=== PATIENT | female | born 1930 | race Caucasian/White ===

== ENCOUNTER → 2017-05-10 | Emergency (ER) | payer OTHER ==
[~2017-05-10] VITALS: Ht 165.1 cm; Wt 45.4 kg
[~2017-05-10] MED LIST: ATACAND4 MG PO; CATAFLAM50 MG PO; LIBRAX CAPSULE1 CA1 PO; MAGNESIUM200 MG PO; POTASSIMIN75 MG PO; SINGULAIR4 MG PO; VASOTEC2.5 MG PO; ZOLOFT25 MG PO
== END | disposition home or self-care (01) ==
LOC: ER 16:56
DX: R55 Syncope and collapse (principal); E86.0 Dehydration

== ENCOUNTER 2018-03-15 12:06 | Inpatient (IN) | payer OTHER ==
[~2018-03-15] VITALS: Ht 149.9 cm; Wt 36.3 kg
== END 2018-03-24 19:24 | disposition home or self-care (01) | DRG 177 ==
LOC: ER 12:06 → MEDI 17:00
PROC: 3E0F7GC Introduction of Other Therapeutic Substance into Respiratory Tract, Via Natural or Artificial Opening (ICD-10-PCS; principal; 2018-03-15)
PROC: 4A033R1 Measurement of Arterial Saturation, Peripheral, Percutaneous Approach (ICD-10-PCS; 2018-03-15)
PROC: BW28ZZZ Computerized Tomography (CT Scan) of Head (ICD-10-PCS; 2018-03-15)
PROC: 4A12X4Z Monitoring of Cardiac Electrical Activity, External Approach (ICD-10-PCS; 2018-03-15)
DX: J69.0 Pneumonitis due to inhalation of food and vomit (principal); G92 Toxic encephalopathy; N39.0 Urinary tract infection, site not specified; A02.8 Other specified salmonella infections; N17.8 Other acute kidney failure; A02.0 Salmonella enteritis; R78.81 Bacteremia; G30.8 Other Alzheimer's disease; F02.80 Dementia in other diseases classified elsewhere, unspecified severity, without behavioral disturbance, psychotic disturbance, mood disturbance, and anxiety; I11.9 Hypertensive heart disease without heart failure; L89.152 Pressure ulcer of sacral region, stage 2; Z74.01 Bed confinement status; Z86.73 Personal history of transient ischemic attack (TIA), and cerebral infarction without residual deficits; B96.1 Klebsiella pneumoniae [K. pneumoniae] as the cause of diseases classified elsewhere; D63.8 Anemia in other chronic diseases classified elsewhere; R15.9 Full incontinence of feces; N39.498 Other specified urinary incontinence

== ENCOUNTER 2018-04-29 13:11 | Emergency (ER) | payer OTHER ==
[~2018-04-29] VITALS: Ht 149.9 cm; Wt 45.4 kg
== END 2018-04-29 19:07 | disposition home or self-care (01) ==
LOC: ER 13:11
DX: B34.9 Viral infection, unspecified (principal); R55 Syncope and collapse; N39.0 Urinary tract infection, site not specified; G30.1 Alzheimer's disease with late onset; F02.80 Dementia in other diseases classified elsewhere, unspecified severity, without behavioral disturbance, psychotic disturbance, mood disturbance, and anxiety; J11.1 Influenza due to unidentified influenza virus with other respiratory manifestations

== ENCOUNTER 2018-06-13 09:26 | Emergency (ER) | payer OTHER ==
[~2018-06-13] VITALS: Ht 157.5 cm; Wt 36.3 kg
[2018-06-13] MEDS ORDERED: NORVASC2.5 M1 (09:39)
== END 2018-06-13 20:55 | disposition home or self-care (01) ==
LOC: ER 09:26
DX: S42.472A Displaced transcondylar fracture of left humerus, initial encounter for closed fracture (principal); F03.90 Unspecified dementia, unspecified severity, without behavioral disturbance, psychotic disturbance, mood disturbance, and anxiety; I16.0 Hypertensive urgency; I10 Essential (primary) hypertension; N39.0 Urinary tract infection, site not specified; B96.89 Other specified bacterial agents as the cause of diseases classified elsewhere; W23.0XXA Caught, crushed, jammed, or pinched between moving objects, initial encounter; Y93.89 Activity, other specified; Y92.013 Bedroom of single-family (private) house as the place of occurrence of the external cause; Y99.8 Other external cause status

== ENCOUNTER 2019-02-11 18:37 | Inpatient (IN) | payer OTHER ==
[~2019-02-11] VITALS: Ht 160 cm; Wt 40.8 kg
[~2019-02-11 18:37] MED LIST changes: +NORVASC2.5 M1
[2019-02-21] MEDS ORDERED: AMLODIPINE BESY10 MG PO (15:04)
== END 2019-04-01 09:26 | disposition expired | DRG 177 ==
LOC: ER 18:37 → SEC-K 02-12 10:11 → SURH 02-12 10:11 → MEDJ 02-14 22:14
PROVIDERS: ADMIT Specialist
PROC: 0T9B70Z Drainage of Bladder with Drainage Device, Via Natural or Artificial Opening (ICD-10-PCS; 2019-02-12)
PROC: 3E0F7GC Introduction of Other Therapeutic Substance into Respiratory Tract, Via Natural or Artificial Opening (ICD-10-PCS; 2019-02-17)
PROC: 0DH63UZ Insertion of Feeding Device into Stomach, Percutaneous Approach (ICD-10-PCS; 2019-02-20)
PROC: 3E0G76Z Introduction of Nutritional Substance into Upper GI, Via Natural or Artificial Opening (ICD-10-PCS; 2019-02-20)
PROC: 02HV33Z Insertion of Infusion Device into Superior Vena Cava, Percutaneous Approach (ICD-10-PCS; 2019-02-21)
PROC: BB24ZZZ Computerized Tomography (CT Scan) of Bilateral Lungs (ICD-10-PCS; principal; 2019-02-28)
PROC: 30233R1 Transfusion of Nonautologous Platelets into Peripheral Vein, Percutaneous Approach (ICD-10-PCS; 2019-03-06)
PROC: 30233N1 Transfusion of Nonautologous Red Blood Cells into Peripheral Vein, Percutaneous Approach (ICD-10-PCS; 2019-03-07)
PROC: 8E0ZXY6 Isolation (ICD-10-PCS; 2019-03-08)
PROC: 4A033R1 Measurement of Arterial Saturation, Peripheral, Percutaneous Approach (ICD-10-PCS; 2019-03-13)
DX: J69.0 Pneumonitis due to inhalation of food and vomit (principal); B37.1 Pulmonary candidiasis; I50.33 Acute on chronic diastolic (congestive) heart failure; D65 Disseminated intravascular coagulation [defibrination syndrome]; A41.9 Sepsis, unspecified organism; I67.89 Other cerebrovascular disease; N39.0 Urinary tract infection, site not specified; T17.898A Other foreign object in other parts of respiratory tract causing other injury, initial encounter; R64 Cachexia; E44.0 Moderate protein-calorie malnutrition; J90 Pleural effusion, not elsewhere classified; N17.8 Other acute kidney failure; I13.0 Hypertensive heart and chronic kidney disease with heart failure and stage 1 through stage 4 chronic kidney disease, or unspecified chronic kidney disease; N18.4 Chronic kidney disease, stage 4 (severe); E87.2 Acidosis; A02.0 Salmonella enteritis; E87.0 Hyperosmolality and hypernatremia; I96 Gangrene, not elsewhere classified; J15.211 Pneumonia due to Methicillin susceptible Staphylococcus aureus; L89.152 Pressure ulcer of sacral region, stage 2; I11.0 Hypertensive heart disease with heart failure; B96.29 Other Escherichia coli [E. coli] as the cause of diseases classified elsewhere; E87.6 Hypokalemia; D63.8 Anemia in other chronic diseases classified elsewhere; R15.2 Fecal urgency; E86.0 Dehydration; I69.391 Dysphagia following cerebral infarction; R13.12 Dysphagia, oropharyngeal phase; E87.8 Other disorders of electrolyte and fluid balance, not elsewhere classified; N39.8 Other specified disorders of urinary system; R13.19 Other dysphagia; F06.8 Other specified mental disorders due to known physiological condition; Z66 Do not resuscitate; Z74.01 Bed confinement status